=== PATIENT | female | born 1940 | race Hispanic/Latino ===

== ENCOUNTER → 2018-08-10 | Outpatient (CLI) | payer MEDICARE | END | disposition home or self-care (01) | LOC: RAH 08:22 | PROVIDERS: ATTEND Internal Medicine | DX: I10 Essential (primary) hypertension (principal); C34.90 Malignant neoplasm of unspecified part of unspecified bronchus or lung | CPT/HCPCS: 93306 ==

== ENCOUNTER 2018-11-10 23:53 | Inpatient (IN) | payer MEDICARE ==
[~2018-11-10] VITALS: Ht 144.8 cm; Wt 47.6 kg
[2018-11-11 00:35] LABS: APPEARANCE,URINE Clear (CLEAR); BILIRUBIN,URINE Negative (NEGATIVE); COLOR,URINE Yellow (YELLOW); GLUCOSE, URINE (UA) Negative (NEGATIVE); KETONES,URINE 15 mg/dL (NEGATIVE); LEUKOCYTE ESTERASE ,URINE Negative (NEGATIVE); NITRATE,URINE Negative (NEGATIVE); OCCULT BLOOD,URINE Negative (NEGATIVE); PROTEIN,URINE Negative (NEGATIVE); UROBILINOGEN,URINE 0.2 mg/dL (0.2-1.0)
[2018-11-11] MEDS ORDERED: SODIUM CHLORIDE 0.9% 50 ML IV ONE (00:45)
[2018-11-11 00:53] LABS: INR 1.02 (0.85-1.15); PARTIAL THROMBOPLASTIN TIME 29.6 SEC (26.3-35.5); PROTHROMBIN TIME 10.7 SEC (9.6-11.6)
[2018-11-11 00:56] LABS: BASOPHILS % (AUTO) 0.2 % (0.0-5.0); EOSINOPHILS % (AUTO) 0.1 % (0.0-8.0); HEMATOCRIT 33.5 % (36-48); LYMPHOCYTES % (AUTO) 6.1 % (21.0-51.0); MEAN CORPUSCULAR HEMOGLOBIN 31.3 pg (27.0-33.0); MEAN CORPUSCULAR HGB CONC 34.6 g/dL (32.0-36.0); MEAN CORPUSCULAR VOLUME 90.4 fL (79-99); MONOCYTES % (AUTO) 7.1 % (3.0-13.0); NEUTROPHILS % (AUTO) 86.5 % (40.0-77.0); PLATELET COUNT (AUTO) 329 K/uL (130-400); RED BLOOD CELL COUNT(AUTO) 3.71 MIL/uL (4.00-5.50); RED CELL DISTRIBUTION WIDTH 14.3 % (11.0-15.5); WHITE BLOOD COUNT (AUTO) 7.8 K/uL (4.8-10.8)
[2018-11-11] MEDS ORDERED: SODIUM CHLORIDE 0.9% 100 ML IV ONE (00:57)
[2018-11-11 01:17] LABS: ALANINE AMINOTRANSFERASE 27 U/L (12-78); ALBUMIN 3.9 g/dL (3.5-5.0); ASPARTATE AMINOTRANSFERASE 38 U/L (10-37); BILIRUBIN,TOTAL 0.8 mg/dL (0.2-1.0); CARBON DIOXIDE 22 mmol/L (21-32); CREATININE 0.6 mg/dL (0.5-1.5); GLOMERULAR FILTR. RATE CALC 103 mL/min (>60); GLUCOSE,RANDOM 133 mg/dL (70-105); MYOGLOBIN 476 ng/mL (10-92); POTASSIUM 3.6 mmol/L (3.5-5.1); SODIUM SERUM 111 mmol/L (136-145); TOTAL PROTEIN, SERUM 7.2 g/dL (6.0-8.3); TROPONIN I < 0.04 ng/mL (0.00-0.06); UREA NITROGEN, BLOOD 9 mg/dL (7-18)
[2018-11-11 01:19] LABS: CHLORIDE 79 mmol/L (101-111); CREATINE KINASE, TOTAL 890 U/L (21-232)
[2018-11-11] MEDS ORDERED: SODIUM CHLORIDE 0.9% 1000ML 1,000 ML IV ONE ×2 (02:34→06:19)
[2018-11-11] MEDS: SODIUM CHLORIDE 0.9% 1000ML 1,000 ML IV SCH ×3 (02:35→22:35)
[2018-11-11] MEDS ORDERED: AZITHROMYCIN 250 MG TABLET PO ONE (02:35)
[2018-11-11] MEDS ORDERED: SODIUM CHLORIDE 0.9% 500ML 500 ML IV ONE (02:35)
[2018-11-11] MEDS ORDERED: ACETAMINOPHEN 325 MG TAB PO PRN (02:45)
[2018-11-11] MEDS ORDERED: ONDANSETRON HCL 4 MG/2 ML VIAL IV PRN (02:45)
[2018-11-11 06:57] LABS: BASOPHILS % (AUTO) 0.3 % (0.0-5.0); EOSINOPHILS % (AUTO) 0.2 % (0.0-8.0); HEMATOCRIT 31.7 % (36-48); LYMPHOCYTES % (AUTO) 9.3 % (21.0-51.0); MEAN CORPUSCULAR HEMOGLOBIN 30.9 pg (27.0-33.0); MEAN CORPUSCULAR HGB CONC 33.6 g/dL (32.0-36.0); MEAN CORPUSCULAR VOLUME 91.9 fL (79-99); MONOCYTES % (AUTO) 7.7 % (3.0-13.0); NEUTROPHILS % (AUTO) 82.5 % (40.0-77.0); PLATELET COUNT (AUTO) 280 K/uL (130-400); RED BLOOD CELL COUNT(AUTO) 3.45 MIL/uL (4.00-5.50); WHITE BLOOD COUNT (AUTO) 5.4 K/uL (4.8-10.8)
[2018-11-11 07:28] LABS: MYOGLOBIN 401 ng/mL (10-92); TROPONIN I < 0.04 ng/mL (0.00-0.06)
[2018-11-11 07:41] LABS: CREATINE KINASE, TOTAL 928 U/L (21-232)
[2018-11-11 07:52] LABS: ALBUMIN 3.2 g/dL (3.5-5.0); BILIRUBIN,TOTAL 0.5 mg/dL (0.2-1.0); CREATININE 0.5 mg/dL (0.5-1.5); POTASSIUM 3.7 mmol/L (3.5-5.1); TOTAL PROTEIN, SERUM 5.7 g/dL (6.0-8.3)
[2018-11-11] MEDS: FAMOTIDINE 20MG TAB 20 MG TAB PO SCH ×2 (09:00→21:00)
[2018-11-11] MEDS ORDERED: ENOXAPARIN SODIUM 30 MG/0.3 ML SQ SCH (09:00)
[2018-11-11] MEDS ORDERED: GADODIAMIDE 5 MMOL/10 ML VIAL 5 MMOL/10 ML ML IV ONE (11:29)
[2018-11-11] MEDS ORDERED: ONDANSETRON HCL 4 MG/2 ML VIAL ONE (11:31)
[2018-11-11 13:02] LABS: MYOGLOBIN 210 ng/mL (10-92); TROPONIN I < 0.04 ng/mL (0.00-0.06)
[2018-11-11] MEDS ORDERED: FAMOTIDINE 20MG TAB 20 MG TAB ONE (13:33)
[2018-11-11 14:08] LABS: CREATINE KINASE, TOTAL 914 U/L (21-232)
[2018-11-11] MEDS ORDERED: SULF1TAB42 PO (16:27)
[2018-11-11] MEDS ORDERED: OSIM80TA PO (16:27)
[2018-11-11] MEDS ORDERED: FISH1CAP20 PO (16:27)
[2018-11-11] MEDS ORDERED: SIMV40TA5 PO (16:27)
[2018-11-11] MEDS ORDERED: LOSA100T58 PO (16:27)
[2018-11-11] MEDS ORDERED: AMLO5TAB9 PO (16:27)
[2018-11-11] MEDS ORDERED: LEVO75TA10 PO (16:27)
[2018-11-11] MEDS ORDERED: VIT1TABL66 PO (16:29)
[2018-11-11] MEDS ORDERED: GARL1TAB2 PO (16:29)
[2018-11-11 19:39] LABS: CREATININE 0.5 mg/dL (0.5-1.5); POTASSIUM 3.9 mmol/L (3.5-5.1)
[2018-11-11 22:21] VITALS: BP 136/56
[2018-11-11 23:30] VITALS: BP 109/66
[2018-11-12 04:07] VITALS: BP 127/63
[2018-11-12 07:00] VITALS: BP 127/52
[2018-11-12 07:16] LABS: BASOPHILS % (AUTO) 0.9 % (0.0-5.0); EOSINOPHILS % (AUTO) 0.8 % (0.0-8.0); HEMATOCRIT 33.5 % (36-48); LYMPHOCYTES % (AUTO) 12.3 % (21.0-51.0); MEAN CORPUSCULAR HEMOGLOBIN 30.9 pg (27.0-33.0); MEAN CORPUSCULAR HGB CONC 33.8 g/dL (32.0-36.0); MEAN CORPUSCULAR VOLUME 91.2 fL (79-99); MONOCYTES % (AUTO) 12.3 % (3.0-13.0); NEUTROPHILS % (AUTO) 73.7 % (40.0-77.0); PLATELET COUNT (AUTO) 346 K/uL (130-400); RED BLOOD CELL COUNT(AUTO) 3.67 MIL/uL (4.00-5.50); RED CELL DISTRIBUTION WIDTH 14.7 % (11.0-15.5); WHITE BLOOD COUNT (AUTO) 5.2 K/uL (4.8-10.8)
[2018-11-12] MEDS: SODIUM CHLORIDE 0.9% 1000ML 1,000 ML IV SCH (08:35)
[2018-11-12] MEDS: FAMOTIDINE 20MG TAB 20 MG TAB PO SCH ×2 (09:16→20:28)
[2018-11-12 10:32] LABS: ALBUMIN 3.4 g/dL (3.5-5.0); BILIRUBIN,TOTAL 0.5 mg/dL (0.2-1.0); CREATININE 0.6 mg/dL (0.5-1.5); POTASSIUM 3.7 mmol/L (3.5-5.1); TOTAL PROTEIN, SERUM 6.6 g/dL (6.0-8.3)
[2018-11-12 11:00] VITALS: BP 130/59
[2018-11-12 11:28] LABS: CREATININE 0.6 mg/dL (0.5-1.5); POTASSIUM 3.4 mmol/L (3.5-5.1)
--- NOTE | 2018-11-12 12:39 | NUR ---
cm note cm note met with patient and states resides at home with spouse, independent with adls, for ambulation. no dme. dc plan is back to same home setting at time of dc. states no dc needs. daughter present xiomy requests provider services information. provided with ph#s to call if decides she wishes to get provider services assistance. pt and dtr verbalize understanding. Addendum: 11/12/18 at 1244 by AUDREY OVALLE CM Amended: Links added.
[2018-11-12] MEDS: ACETAMINOPHEN 325 MG TAB PO PRN (14:04)
[2018-11-12 16:00] VITALS: BP 128/58
[2018-11-12 20:12] VITALS: BP 132/59
[2018-11-12 23:52] VITALS: BP 127/78
[2018-11-13 03:42] VITALS: BP 137/59
[2018-11-13 04:11] LABS: BASOPHILS % (AUTO) 1.2 % (0.0-5.0); EOSINOPHILS % (AUTO) 1.9 % (0.0-8.0); HEMATOCRIT 33.6 % (36-48); LYMPHOCYTES % (AUTO) 16.1 % (21.0-51.0); MEAN CORPUSCULAR HEMOGLOBIN 31.3 pg (27.0-33.0); MEAN CORPUSCULAR HGB CONC 33.9 g/dL (32.0-36.0); MEAN CORPUSCULAR VOLUME 92.3 fL (79-99); MONOCYTES % (AUTO) 11.8 % (3.0-13.0); PLATELET COUNT (AUTO) 338 K/uL (130-400); RED BLOOD CELL COUNT(AUTO) 3.64 MIL/uL (4.00-5.50); RED CELL DISTRIBUTION WIDTH 14.6 % (11.0-15.5); WHITE BLOOD COUNT (AUTO) 5.3 K/uL (4.8-10.8)
[2018-11-13 04:24] LABS: CREATININE 0.6 mg/dL (0.5-1.5); POTASSIUM 3.5 mmol/L (3.5-5.1)
[2018-11-13 07:00] VITALS: BP 165/82
--- NOTE | 2018-11-13 07:35 | NUR ---
ASSESSMENT ENCOUNTERED PT A&OX3, CALM COOPERATIVE AND DOES NOT APPEAR TO BE IN ANY DISTRESS NOR ANY NEURO DEFICITS PRESENT. PT DENIES SOB, NAUSEA, DIZZINESS OR LIGHTHEADEDNESS BUT DOES C/O GENERALIZED BODY ACHES AND SORENESS. PT IS ABLE TO TOLERATE FOOD AND FLUIDS WITH NO THROAT CLEARING OR COUGH. PT DOES AMBULATE TO BATHROOM AND BACK TO BED WITH 1-2 PERSON ASSIST, GAIT BELT, GAIT SLOW BUT STEADY. CALL LIGHT WITHIN REACH, FAMILY AT BEDSIDE.
[2018-11-13] MEDS ORDERED: LORA-705 PO (09:04)
[2018-11-13] MEDS ORDERED: AEC81 PO (09:05)
[2018-11-13] MEDS ORDERED: MONT10TA24 PO (09:05)
[2018-11-13] MEDS ORDERED: CALC1TAB3 PO (09:06)
[2018-11-13] MEDS: FAMOTIDINE 20MG TAB 20 MG TAB PO SCH ×2 (10:21→21:14)
[2018-11-13 11:00] VITALS: BP 126/68
--- NOTE | 2018-11-13 14:42 | NUR ---
cm note met with patient and daughter, discussed md orders for hh, and state they are in agrement for any HH that dr heart wishes, call made to dr heart, and states [facility] is ok for hh, referral faxed in to Gabriela with [facility], and states they do service [place] and do have Pt. pending acceptance.
[2018-11-13 16:00] VITALS: BP 131/68
[2018-11-13 19:34] VITALS: BP 144/77
[2018-11-13] MEDS: ACETAMINOPHEN 325 MG TAB PO PRN (21:18)
[2018-11-13 23:55] VITALS: BP 141/64
[2018-11-14 03:37] VITALS: BP 133/64
[2018-11-14 04:03] LABS: HEMATOCRIT 33.2 % (36-48); MEAN CORPUSCULAR HEMOGLOBIN 31.7 pg (27.0-33.0); MEAN CORPUSCULAR HGB CONC 34.6 g/dL (32.0-36.0); MEAN CORPUSCULAR VOLUME 91.8 fL (79-99); PLATELET COUNT (AUTO) 358 K/uL (130-400); RED BLOOD CELL COUNT(AUTO) 3.62 MIL/uL (4.00-5.50); RED CELL DISTRIBUTION WIDTH 15.1 % (11.0-15.5); WHITE BLOOD COUNT (AUTO) 5.3 K/uL (4.8-10.8)
[2018-11-14 04:13] LABS: CREATININE 0.6 mg/dL (0.5-1.5); POTASSIUM 3.6 mmol/L (3.5-5.1)
[2018-11-14 07:00] VITALS: BP 172/78
--- NOTE | 2018-11-14 07:50 | NUR ---
ASSESSMENT ENCOUNTERED PT UP IN CHAIR, A&OX3, CALM COOPERATIVE AND DOES NOT APPEAR TO BE IN ANY DISTRESS NOR ANY NEURO DEFICITS PRESENT. PT DENIES PAIN, SOB, NAUSEA, DIZZINESS OR LIGHTHEADEDNESS. PT IS AMBULATORY, GAIT SLOW BUT STEADY WITH 1-2 PERSON ASSIST. PT IS ABLE TO TOLERATE FOODS AND FLUIDS WITH NO THROAT CLEARING OR COUGH. CALL LIGHT WITHIN REACH, FAMILY AT BEDSIDE.
[2018-11-14] MEDS ORDERED: AMLODIPINE BESYLATE 5 MG TAB PO SCH (09:30)
[2018-11-14] MEDS: FAMOTIDINE 20MG TAB 20 MG TAB PO SCH (10:14)
[2018-11-14 11:00] VITALS: BP 128/75
--- NOTE | 2018-11-14 14:45 | NUR ---
DR LIM AT BEDSIDE UPDATE GIVEN, ORDERS RECEIVED
--- NOTE | 2018-11-14 15:00 | NUR ---
DISCHARGE INSTRUCTIONS GIVEN, PIV REMOVED AND INTACT, DISCHARGED HOME TO FAMILY VEHICLE VIA WHEELCHAIR, REPORT CALLED TO [facility], SPOKE TO JOSEPH OLIVEIRA RN.
== END 2018-11-14 15:40 | disposition home health service (06) | DRG 640 ==
LOC: EDH 23:53 → EDHIP 11-11 02:33 → 2DH 11-11 20:59
PROVIDERS: ADMIT Internal Medicine; ATTEND Internal Medicine
DX: E87.1 Hypo-osmolality and hyponatremia (principal); S06.5X9A Traumatic subdural hemorrhage with loss of consciousness of unspecified duration, initial encounter; C79.31 Secondary malignant neoplasm of brain; C34.90 Malignant neoplasm of unspecified part of unspecified bronchus or lung; M62.82 Rhabdomyolysis; E44.1 Mild protein-calorie malnutrition; I12.9 Hypertensive chronic kidney disease with stage 1 through stage 4 chronic kidney disease, or unspecified chronic kidney disease; N18.2 Chronic kidney disease, stage 2 (mild); E03.9 Hypothyroidism, unspecified; E55.9 Vitamin D deficiency, unspecified; E78.5 Hyperlipidemia, unspecified; E86.1 Hypovolemia; H70.93 Unspecified mastoiditis, bilateral; K21.9 Gastro-esophageal reflux disease without esophagitis; L50.0 Allergic urticaria; M19.90 Unspecified osteoarthritis, unspecified site; M81.0 Age-related osteoporosis without current pathological fracture; W19.XXXA Unspecified fall, initial encounter; Z68.22 Body mass index [BMI] 22.0-22.9, adult; Y93.89 Activity, other specified; Y92.098 Other place in other non-institutional residence as the place of occurrence of the external cause; Y99.8 Other external cause status; Z79.82 Long term (current) use of aspirin; Z79.890 Hormone replacement therapy; Z85.118 Personal history of other malignant neoplasm of bronchus and lung; Z90.49 Acquired absence of other specified parts of digestive tract; Z90.710 Acquired absence of both cervix and uterus; Z82.49 Family history of ischemic heart disease and other diseases of the circulatory system
CPT/HCPCS: 36415; 70450; 70553; 71045; 72100; 72125; 73521; 80048; 80053; 81003; 82550; 83605; 83690; 83874; 83930; 83935; 84300; 84443; 84484; 84550; 85025; 85027; 85610; 85730; 87040; 87077; 87088; 87186; 87804; 93005; 97039; A9579; G0378; J2405; J7030; J7040

== ENCOUNTER → 2019-03-01 | Outpatient (CLI) | payer MEDICARE ==
[~2019-03-01] MED LIST: AEC81 PO; AMLO5TAB9 PO; CALC1TAB3 PO; FISH1CAP20 PO; LEVO75TA10 PO; LORA-705 PO; MONT10TA24 PO; OSIM80TA PO; SIMV40TA5 PO; VIT1TABL66 PO
== END | disposition home or self-care (01) ==
LOC: RAH 11:25
PROVIDERS: ATTEND Internal Medicine
DX: M47.814 Spondylosis without myelopathy or radiculopathy, thoracic region (principal); M47.816 Spondylosis without myelopathy or radiculopathy, lumbar region; M48.061 Spinal stenosis, lumbar region without neurogenic claudication; C78.00 Secondary malignant neoplasm of unspecified lung
CPT/HCPCS: 72146; 72148

== ENCOUNTER 2020-09-17 14:38 | Inpatient (IN) | payer MEDICARE ==
[~2020-09-17] VITALS: Ht 144.8 cm; Wt 45.3 kg
[~2020-09-17 14:38] MED LIST changes: -AEC81 PO; +AMLO2.5T4 PO; -AMLO5TAB9 PO; +CEPH500T PO; +CLON0.1T PO; +DEXA2TAB PO; +FAMO20TA8 PO; -LORA-705 PO; -MONT10TA24 PO; +MONT10TA96 PO; +POTA20TA12 PO; +SIMV10TA97 PO; -SIMV40TA5 PO
[2020-09-17] MEDS ORDERED: DIPHENHYDRAMINE HCL 25 MG CAPSULE PO PRN (15:15)
[2020-09-17] MEDS ORDERED: LACTULOSE 20 GM/30 ML UDCUP PO PRN (15:15)
[2020-09-17] MEDS ORDERED: ONDANSETRON HCL 4 MG/2 ML VIAL IV PRN (15:15)
[2020-09-17] MEDS ORDERED: MAG HYDROX/AL HYDROX/SIMETH ES 30 ML SUSP UDCUP PO PRN (15:15)
[2020-09-17] MEDS ORDERED: DiphenhydrAMINE HCL 50 MG/ML VIAL IV PRN (15:15)
[2020-09-17] MEDS ORDERED: ACETAMINOPHEN 325 MG TAB PO PRN (15:15)
[2020-09-17] MEDS ORDERED: CLONIDINE HCL 0.1 MG TABLET PO PRN (15:30)
[2020-09-17] MEDS ORDERED: ACET1TAB25 PO (15:30)
[2020-09-17] MEDS ORDERED: LIDOCAINE HCL-MPF 1% 2ML VIAL IJ PRN ×2 (15:30)
[2020-09-17] MEDS ORDERED: POTASSIUM CHLORIDE 20MEQ/100ML 100 ML IV PRN ×2 (15:30)
[2020-09-17] MEDS ORDERED: ALEN35TA51 PO (15:30)
[2020-09-17] MEDS ORDERED: MORPHINE SULFATE 4 MG/1ML SYG ONE (15:46)
[2020-09-17] MEDS ORDERED: ONDANSETRON HCL 4 MG/2 ML VIAL ONE (15:46)
[2020-09-17 15:55] LABS: HEMATOCRIT 29.5 % (36-48); MEAN CORPUSCULAR HEMOGLOBIN 30.5 pg (27.0-33.0); MEAN CORPUSCULAR HGB CONC 35.3 g/dL (32.0-36.0); MEAN CORPUSCULAR VOLUME 86.5 fL (79-99); RED BLOOD CELL COUNT(AUTO) 3.41 MIL/uL (4.00-5.50); RED CELL DISTRIBUTION WIDTH 13.1 % (11.0-15.5); WHITE BLOOD COUNT (AUTO) 5.3 K/uL (4.8-10.8)
[2020-09-17 16:11] LABS: INR 1.07 (0.85-1.15); PROTHROMBIN TIME 11.4 SEC (9.6-11.6)
[2020-09-17 16:13] LABS: ALBUMIN 3.9 g/dL (3.5-5.0); BILIRUBIN,TOTAL 0.6 mg/dL (0.2-1.0); CREATININE 0.5 mg/dL (0.5-1.5); POTASSIUM 3.6 mmol/L (3.5-5.1); TOTAL PROTEIN, SERUM 7.3 g/dL (6.0-8.3)
[2020-09-17] MEDS ORDERED: SODIUM CHLORIDE 0.9% 1000ML 1,000 ML IV ONE (16:49)
[2020-09-17] MEDS ORDERED: ENOXAPARIN SODIUM 30 MG/0.3 ML SQ ONE (16:52)
[2020-09-17 20:13] VITALS: BP 169/67
[2020-09-17] MEDS: SIMVASTATIN 10 MG TABLET PO SCH (21:34)
[2020-09-17] MEDS: SODIUM CHLORIDE 0.9% 1000ML 1,000 ML IV SCH (21:35)
[2020-09-18] VITALS (26 sets, daily range): BP systolic 107–151; BP diastolic 48–88
[2020-09-18 02:30] LABS: APPEARANCE,URINE Clear (CLEAR); BILIRUBIN,URINE Negative (NEGATIVE); COLOR,URINE Yellow (YELLOW); GLUCOSE, URINE (UA) Negative (NEGATIVE); KETONES,URINE Negative (NEGATIVE); LEUKOCYTE ESTERASE ,URINE Negative (NEGATIVE); NITRATE,URINE Negative (NEGATIVE); OCCULT BLOOD,URINE Trace (NEGATIVE); PROTEIN,URINE Negative (NEGATIVE); UROBILINOGEN,URINE 0.2 mg/dL (0.2-1.0)
[2020-09-18 02:42] LABS: BACTERIA,URINE None Seen /HPF (None Seen); RBC,URINE None Seen /HPF (0-1); SQUAMOUS EPITHELIAL CELL,UR Few /HPF (0-2); WBC,URINE None Seen /HPF (0-1)
[2020-09-18 05:28] LABS: HEMATOCRIT 28.8 % (36-48); MEAN CORPUSCULAR HEMOGLOBIN 30.3 pg (27.0-33.0); MEAN CORPUSCULAR HGB CONC 34.7 g/dL (32.0-36.0); MEAN CORPUSCULAR VOLUME 87.3 fL (79-99); RED BLOOD CELL COUNT(AUTO) 3.3 MIL/uL (4.00-5.50); WHITE BLOOD COUNT (AUTO) 3.8 K/uL (4.8-10.8)
[2020-09-18] MEDS: LEVOTHYROXINE 75 MCG TABLET PO SCH (05:33)
[2020-09-18 05:57] LABS: CREATININE 0.5 mg/dL (0.5-1.5); POTASSIUM 3.7 mmol/L (3.5-5.1)
[2020-09-18] MEDS ORDERED: ENOXAPARIN SODIUM 30 MG/0.3 ML SQ SCH (09:00)
[2020-09-18] MEDS: PANTOPRAZOLE SODIUM 40 MG TABLET.DR PO SCH (09:09)
[2020-09-18] MEDS: MONTELUKAST SODIUM 10 MG TAB PO SCH (09:09)
[2020-09-18] MEDS: AMLODIPINE BESYLATE 2.5 MG TAB PO SCH (09:09)
[2020-09-18] MEDS: POTASSIUM CHLORIDE 20 MEQ ERTAB PO SCH (09:09)
[2020-09-18] MEDS ORDERED: PROPOFOL 10 MG/ML 20ML VIAL IV ONE (10:51)
[2020-09-18] MEDS ORDERED: LIDOCAINE PF 2% 5ML ABBOJECT ONE (10:51)
[2020-09-18] MEDS ORDERED: SUCCINYLCHOLINE CHLORIDE 20 MG/ML 10 ML VIAL ONE (10:51)
[2020-09-18] MEDS ORDERED: DEXAMETHASONE SOD PHOSPHATE 10MG/ML 1ML VIAL ONE (10:52)
[2020-09-18] MEDS ORDERED: MIDAZOLAM HCL 1 MG/ML 2ML VIAL ONE (10:52)
[2020-09-18] MEDS ORDERED: NEOSTIGMINE 5MG/5ML SYR IV ONE (10:52)
[2020-09-18] MEDS ORDERED: GLYCOPYRROLATE 1 MG/5 ML SYRINGE ONE (10:52)
[2020-09-18] MEDS ORDERED: ROCURONIUM 10MG/1ML SYR 10 MG/ML ML ONE (10:53)
[2020-09-18] MEDS ORDERED: FENTANYL CITRATE PF 50 MCG/1 ML 2ML VIAL ONE (10:53)
[2020-09-18] MEDS ORDERED: ONDANSETRON HCL 4 MG/2 ML VIAL ONE (10:53)
[2020-09-18] MEDS ORDERED: ROPIVACAINE 0.5% 5MG/ML 30ML IJ ONE (11:02)
[2020-09-18] MEDS ORDERED: KETAMINE 50MG/ML SYRINGE 50 MG/ML DISP.SYRIN IV ONE (11:03)
[2020-09-18] MEDS: SODIUM CHLORIDE 0.9% 1000ML 1,000 ML IV SCH ×2 (11:15→19:35)
[2020-09-18] MEDS ORDERED: CEFAZOLIN SODIUM 1 GM VIAL ONE ×2 (12:19→19:15)
[2020-09-18] MEDS: MORPHINE SULFATE 2 MG/ML 1ML SYG IV PRN (14:55)
[2020-09-18] MEDS: CEFAZOLIN SODIUM 1 GM VIAL IVP SCH (19:34)
[2020-09-18] MEDS: SIMVASTATIN 10 MG TABLET PO SCH (19:34)
[2020-09-19 00:24] VITALS: BP 129/52
[2020-09-19 04:24] VITALS: BP 128/54
[2020-09-19] MEDS: CEFAZOLIN SODIUM 1 GM VIAL IVP SCH (04:27)
[2020-09-19] MEDS: SODIUM CHLORIDE 0.9% 1000ML 1,000 ML IV SCH (04:32)
[2020-09-19] MEDS: LEVOTHYROXINE 75 MCG TABLET PO SCH (04:32)
[2020-09-19] MEDS: ACETAMINOPHEN-CODEINE 300/30MG TAB PO PRN (04:33)
[2020-09-19 07:50] VITALS: BP 151/65
[2020-09-19] MEDS: PANTOPRAZOLE SODIUM 40 MG TABLET.DR PO SCH (08:58)
[2020-09-19] MEDS: MONTELUKAST SODIUM 10 MG TAB PO SCH (08:58)
[2020-09-19 08:59] LABS: HEMATOCRIT 26.3 % (36-48); MEAN CORPUSCULAR HEMOGLOBIN 30.8 pg (27.0-33.0); RED BLOOD CELL COUNT(AUTO) 2.99 MIL/uL (4.00-5.50); RED CELL DISTRIBUTION WIDTH 13.4 % (11.0-15.5); WHITE BLOOD COUNT (AUTO) 5.6 K/uL (4.8-10.8)
[2020-09-19] MEDS: POTASSIUM CHLORIDE 20 MEQ ERTAB PO SCH (09:02)
[2020-09-19 09:11] LABS: CREATININE 0.5 mg/dL (0.5-1.5)
[2020-09-19] MEDS: POTASSIUM CHLORIDE 10% ELIXIR 20 MEQ/15 ML UDCUP PO PRN ×4 (10:06→20:04)
[2020-09-19] MEDS ORDERED: APIX2.5T PO (10:27)
[2020-09-19 11:55] VITALS: BP 129/69
[2020-09-19] MEDS: AMLODIPINE BESYLATE 2.5 MG TAB PO SCH (12:34)
[2020-09-19 16:00] VITALS: BP 155/66
[2020-09-19 20:00] VITALS: BP 126/70
[2020-09-19] MEDS: APIXABAN 2.5 MG TABLET PO SCH (20:03)
[2020-09-19] MEDS: SIMVASTATIN 10 MG TABLET PO SCH (20:03)
[2020-09-19] MEDS: ACETAMINOPHEN 325 MG TAB PO PRN (20:11)
[2020-09-19] MEDS: POTASSIUM CHLORIDE 10% ELIXIR 20 MEQ/15 ML UDCUP PO SCH (21:00)
[2020-09-19] MEDS ORDERED: POTASSIUM CHLORIDE 20 MEQ ERTAB PO SCH (21:00)
[2020-09-20] VITALS: BP 130/65
[2020-09-20] MEDS: SODIUM CHLORIDE 0.9% 1000ML 1,000 ML IV SCH ×2 (00:17→20:17)
[2020-09-20 03:42] LABS: HEMATOCRIT 23.8 % (36-48); MEAN CORPUSCULAR HEMOGLOBIN 31.2 pg (27.0-33.0); MEAN CORPUSCULAR HGB CONC 35.3 g/dL (32.0-36.0); MEAN CORPUSCULAR VOLUME 88.5 fL (79-99); RED BLOOD CELL COUNT(AUTO) 2.69 MIL/uL (4.00-5.50); RED CELL DISTRIBUTION WIDTH 13.7 % (11.0-15.5); WHITE BLOOD COUNT (AUTO) 5.5 K/uL (4.8-10.8)
[2020-09-20 03:55] LABS: CREATININE 0.6 mg/dL (0.5-1.5); POTASSIUM 4.3 mmol/L (3.5-5.1)
[2020-09-20 04:00] VITALS: BP 149/72
[2020-09-20] MEDS: LEVOTHYROXINE 75 MCG TABLET PO SCH (06:58)
[2020-09-20] MEDS: MONTELUKAST SODIUM 10 MG TAB PO SCH (10:05)
[2020-09-20] MEDS: PANTOPRAZOLE SODIUM 40 MG TABLET.DR PO SCH (10:05)
[2020-09-20] MEDS: ACETAMINOPHEN 325 MG TAB PO PRN (10:05)
[2020-09-20] MEDS: AMLODIPINE BESYLATE 2.5 MG TAB PO SCH (10:06)
[2020-09-20] MEDS: APIXABAN 2.5 MG TABLET PO SCH ×2 (10:06→19:19)
[2020-09-20] MEDS: POTASSIUM CHLORIDE 10% ELIXIR 20 MEQ/15 ML UDCUP PO SCH ×2 (10:07→19:19)
[2020-09-20 11:59] VITALS: BP 138/62
[2020-09-20 16:00] VITALS: BP 141/68
[2020-09-20] MEDS ORDERED: CALCIUM 600 + VITAMIN D 400 TABLET PO SCH (18:45)
[2020-09-20] MEDS: SIMVASTATIN 10 MG TABLET PO SCH (19:19)
[2020-09-20] MEDS: MORPHINE SULFATE 2 MG/ML 1ML SYG IV PRN ×2 (19:20→23:51)
[2020-09-20 19:35] VITALS: BP 136/62
[2020-09-21] VITALS (7 sets, daily range): BP systolic 121–158; BP diastolic 55–74
[2020-09-21] MEDS: LEVOTHYROXINE 75 MCG TABLET PO SCH (05:40)
[2020-09-21 05:52] LABS: BASOPHILS % (AUTO) 0.7 % (0.0-5.0); EOSINOPHILS % (AUTO) 3.9 % (0.0-8.0); HEMATOCRIT 24.9 % (36-48); LYMPHOCYTES % (AUTO) 16.3 % (21.0-51.0); MEAN CORPUSCULAR HEMOGLOBIN 30.5 pg (27.0-33.0); MEAN CORPUSCULAR HGB CONC 34.9 g/dL (32.0-36.0); MEAN CORPUSCULAR VOLUME 87.4 fL (79-99); MONOCYTES % (AUTO) 9.3 % (3.0-13.0); NEUTROPHILS % (AUTO) 69.6 % (40.0-77.0); PLATELET COUNT (AUTO) 261 K/uL (130-400); RED BLOOD CELL COUNT(AUTO) 2.85 MIL/uL (4.00-5.50); RED CELL DISTRIBUTION WIDTH 13.7 % (11.0-15.5); WHITE BLOOD COUNT (AUTO) 4.6 K/uL (4.8-10.8)
[2020-09-21 06:51] LABS: BILIRUBIN,TOTAL 0.3 mg/dL (0.2-1.0); CREATININE 0.5 mg/dL (0.5-1.5); POTASSIUM 3.9 mmol/L (3.5-5.1); TOTAL PROTEIN, SERUM 6.2 g/dL (6.0-8.3)
[2020-09-21] MEDS: APIXABAN 2.5 MG TABLET PO SCH (08:50)
[2020-09-21] MEDS: POTASSIUM CHLORIDE 10% ELIXIR 20 MEQ/15 ML UDCUP PO SCH (08:50)
[2020-09-21] MEDS: AMLODIPINE BESYLATE 2.5 MG TAB PO SCH (08:50)
[2020-09-21] MEDS: MONTELUKAST SODIUM 10 MG TAB PO SCH (08:50)
[2020-09-21] MEDS: PANTOPRAZOLE SODIUM 40 MG TABLET.DR PO SCH (08:50)
[2020-09-21] MEDS: ACETAMINOPHEN 325 MG TAB PO PRN (08:51)
[2020-09-21] MEDS: SODIUM CHLORIDE 0.9% 1000ML 1,000 ML IV SCH (13:58)
[2020-09-21 18:01] LABS: APPEARANCE,URINE Clear (CLEAR); BILIRUBIN,URINE Negative (NEGATIVE); COLOR,URINE Yellow (YELLOW); GLUCOSE, URINE (UA) Negative (NEGATIVE); KETONES,URINE Negative (NEGATIVE); LEUKOCYTE ESTERASE ,URINE Small (NEGATIVE); NITRATE,URINE Negative (NEGATIVE); OCCULT BLOOD,URINE Negative (NEGATIVE); PROTEIN,URINE Negative (NEGATIVE)
[2020-09-21 18:03] LABS: CHLORIDE,URINE RANDOM 116 mmol/L (110-250); SODIUM,URINE RANDOM 66 mmol/l (40-220)
[2020-09-21 18:24] LABS: BACTERIA,URINE Few /HPF (None Seen); MUCUS,URINE Few LPF (None Seen); SQUAMOUS EPITHELIAL CELL,UR Few /HPF (0-2)
[2020-09-21] MEDS ORDERED: SODIUM CHLORIDE 1,000 MG TAB PO SCH (21:00)
[2020-09-22] MEDS: SIMVASTATIN 10 MG TABLET PO SCH ×2 (00:08→20:43)
[2020-09-22] MEDS: SODIUM CHLORIDE 1,000 MG TAB PO SCH ×3 (00:08→20:43)
[2020-09-22] MEDS: APIXABAN 2.5 MG TABLET PO SCH ×3 (00:10→20:43)
[2020-09-22] MEDS: POTASSIUM CHLORIDE 10% ELIXIR 20 MEQ/15 ML UDCUP PO SCH ×3 (00:40→20:46)
[2020-09-22 04:04] VITALS: BP 127/80
[2020-09-22 05:39] LABS: BASOPHILS % (AUTO) 0.5 % (0.0-5.0); EOSINOPHILS % (AUTO) 4.8 % (0.0-8.0); HEMATOCRIT 24.8 % (36-48); LYMPHOCYTES % (AUTO) 19.4 % (21.0-51.0); MEAN CORPUSCULAR HEMOGLOBIN 30.4 pg (27.0-33.0); MEAN CORPUSCULAR HGB CONC 34.7 g/dL (32.0-36.0); MEAN CORPUSCULAR VOLUME 87.6 fL (79-99); MONOCYTES % (AUTO) 9.3 % (3.0-13.0); NEUTROPHILS % (AUTO) 65.7 % (40.0-77.0); PLATELET COUNT (AUTO) 275 K/uL (130-400); RED BLOOD CELL COUNT(AUTO) 2.83 MIL/uL (4.00-5.50); RED CELL DISTRIBUTION WIDTH 13.6 % (11.0-15.5); WHITE BLOOD COUNT (AUTO) 3.8 K/uL (4.8-10.8)
[2020-09-22 06:09] LABS: BILIRUBIN,TOTAL 0.4 mg/dL (0.2-1.0); CREATININE 0.5 mg/dL (0.5-1.5); MAGNESIUM 1.8 mg/dL (1.80-2.40); PHOSPHORUS 3.5 mg/dL (2.5-4.9); POTASSIUM 4.2 mmol/L (3.5-5.1); THYROID STIMULATING HORMONE 0.79 uIU/mL (0.36-3.74); TOTAL PROTEIN, SERUM 6.4 g/dL (6.0-8.3); URIC ACID 1.4 mg/dL (2.6-7.2)
[2020-09-22 06:45] LABS: % IRON SATURATION 19.7 % (22-44)
[2020-09-22 08:12] VITALS: BP 136/58
[2020-09-22] MEDS: LEVOTHYROXINE 75 MCG TABLET PO SCH (08:56)
[2020-09-22] MEDS: Vitamin B Complex/Vit C/Folic Acid PO SCH (08:56)
[2020-09-22] MEDS: PANTOPRAZOLE SODIUM 40 MG TABLET.DR PO SCH (08:56)
[2020-09-22] MEDS: AMLODIPINE BESYLATE 2.5 MG TAB PO SCH (08:56)
[2020-09-22] MEDS: MONTELUKAST SODIUM 10 MG TAB PO SCH (08:57)
[2020-09-22 11:57] VITALS: BP 137/55
[2020-09-22] MEDS ORDERED: COMPOUND IV MISC 1 EACH IVSOLN MISC PRN (12:45)
[2020-09-22 17:09] VITALS: BP 140/58
[2020-09-22 19:57] VITALS: BP 136/66
[2020-09-22 23:27] VITALS: BP 133/77
[2020-09-23 03:47] LABS: BASOPHILS % (AUTO) 0.5 % (0.0-5.0); EOSINOPHILS % (AUTO) 5.2 % (0.0-8.0); HEMATOCRIT 24.6 % (36-48); LYMPHOCYTES % (AUTO) 20.2 % (21.0-51.0); MEAN CORPUSCULAR HEMOGLOBIN 30.5 pg (27.0-33.0); MEAN CORPUSCULAR HGB CONC 34.6 g/dL (32.0-36.0); MEAN CORPUSCULAR VOLUME 88.2 fL (79-99); MONOCYTES % (AUTO) 11.7 % (3.0-13.0); NEUTROPHILS % (AUTO) 62.2 % (40.0-77.0); PLATELET COUNT (AUTO) 295 K/uL (130-400); RED BLOOD CELL COUNT(AUTO) 2.79 MIL/uL (4.00-5.50); RED CELL DISTRIBUTION WIDTH 13.5 % (11.0-15.5)
[2020-09-23 04:10] LABS: BILIRUBIN,TOTAL 0.4 mg/dL (0.2-1.0); CREATININE 0.5 mg/dL (0.5-1.5); TOTAL PROTEIN, SERUM 6.2 g/dL (6.0-8.3)
[2020-09-23 04:14] VITALS: BP 138/79
[2020-09-23] MEDS: LEVOTHYROXINE 75 MCG TABLET PO SCH (07:01)
[2020-09-23 08:05] VITALS: BP 136/63
[2020-09-23] MEDS ORDERED: IRON SUCROSE COMPLEX 100 MG in SODIUM CHLORIDE 0.9% 50 ML IV SCH (09:00)
[2020-09-23] MEDS: MONTELUKAST SODIUM 10 MG TAB PO SCH (09:42)
[2020-09-23] MEDS: APIXABAN 2.5 MG TABLET PO SCH (09:43)
[2020-09-23] MEDS: ACETAMINOPHEN-CODEINE 300/30MG TAB PO PRN (09:44)
[2020-09-23] MEDS: Vitamin B Complex/Vit C/Folic Acid PO SCH (09:44)
[2020-09-23] MEDS: AMLODIPINE BESYLATE 2.5 MG TAB PO SCH (09:44)
[2020-09-23] MEDS: SODIUM CHLORIDE 1,000 MG TAB PO SCH (09:44)
[2020-09-23] MEDS: PANTOPRAZOLE SODIUM 40 MG TABLET.DR PO SCH (09:44)
[2020-09-23] MEDS: POTASSIUM CHLORIDE 10% ELIXIR 20 MEQ/15 ML UDCUP PO SCH (09:45)
[2020-09-23 11:17] VITALS: BP 115/72
[2020-09-23 16:08] VITALS: BP 116/57
== END 2020-09-23 20:04 | DRG 480 ==
LOC: EDH 14:38 → EDHIP 15:12 → 3AH 20:12
PROVIDERS: ADMIT Internal Medicine; ATTEND Internal Medicine
PROC: 0QS606Z Reposition Right Upper Femur with Intramedullary Internal Fixation Device, Open Approach (ICD-10-PCS; principal; 2020-09-18 12:30)
PROC: 3E0T3BZ Introduction of Anesthetic Agent into Peripheral Nerves and Plexi, Percutaneous Approach (ICD-10-PCS; 2020-09-18 12:30)
DX: S72.141A Displaced intertrochanteric fracture of right femur, initial encounter for closed fracture (principal); E43 Unspecified severe protein-calorie malnutrition; E87.1 Hypo-osmolality and hyponatremia; N17.9 Acute kidney failure, unspecified; K21.9 Gastro-esophageal reflux disease without esophagitis; M47.816 Spondylosis without myelopathy or radiculopathy, lumbar region; N18.2 Chronic kidney disease, stage 2 (mild); E86.0 Dehydration; D64.9 Anemia, unspecified; E03.9 Hypothyroidism, unspecified; E87.6 Hypokalemia; H70.893 Other mastoiditis and related conditions, bilateral; I12.9 Hypertensive chronic kidney disease with stage 1 through stage 4 chronic kidney disease, or unspecified chronic kidney disease; M19.90 Unspecified osteoarthritis, unspecified site; M81.0 Age-related osteoporosis without current pathological fracture; Z20.828 Contact with and (suspected) exposure to other viral communicable diseases; W01.0XXA Fall on same level from slipping, tripping and stumbling without subsequent striking against object, initial encounter; E78.2 Mixed hyperlipidemia; Z90.49 Acquired absence of other specified parts of digestive tract; Z85.118 Personal history of other malignant neoplasm of bronchus and lung; Z82.49 Family history of ischemic heart disease and other diseases of the circulatory system; Z85.29 Personal history of malignant neoplasm of other respiratory and intrathoracic organs; Z90.710 Acquired absence of both cervix and uterus; Z92.21 Personal history of antineoplastic chemotherapy; Z88.8 Allergy status to other drugs, medicaments and biological substances; Z91.018 Allergy to other foods; Y93.89 Activity, other specified; Y92.009 Unspecified place in unspecified non-institutional (private) residence as the place of occurrence of the external cause; Y99.8 Other external cause status; Z98.42 Cataract extraction status, left eye; Z98.41 Cataract extraction status, right eye; Z68.21 Body mass index [BMI] 21.0-21.9, adult
CPT/HCPCS: 36415; 70450; 71045; 73502; 73503; 73552; 80048; 80053; 81001; 82436; 82728; 83540; 83550; 83735; 83930; 83935; 84100; 84132; 84300; 84443; 84550; 85025; 85027; 85610; 85730; 87426; 93005; 97039; G0378; J0330; J0690; J1100; J1650; J1756; J2001; J2250; J2270; J2405; J2704; J2710; J2795; J3010; J3490; J7030; U0003